=== PATIENT | male | born 1940 | race Two or more races ===

== ENCOUNTER 2022-09-24 23:12 | Emergency (ER) | payer OTHER ==
[~2022-09-24] VITALS: Ht 175.3 cm; Wt 81.6 kg
== END 2022-09-25 07:29 | disposition home or self-care (01) ==
LOC: ER 23:12
DX: S01.81XA Laceration without foreign body of other part of head, initial encounter (principal); W18.39XA Other fall on same level, initial encounter; Y93.89 Activity, other specified; Y92.488 Other paved roadways as the place of occurrence of the external cause; Y99.8 Other external cause status

== ENCOUNTER 2022-10-05 20:50 | Emergency (ER) | payer OTHER ==
[~2022-10-05] VITALS: Ht 177.8 cm; Wt 81.6 kg
== END 2022-10-05 22:43 | disposition home or self-care (01) ==
LOC: ER 20:50
DX: Z48.02 Encounter for removal of sutures (principal)

== ENCOUNTER 2024-08-22 15:55 | Inpatient (IN) | payer OTHER ==
[~2024-08-22] VITALS: Ht 170.2 cm; Wt 78.5 kg
[2024-08-22] MEDS ORDERED: NAMENDA XR1 EACH (16:15)
[2024-08-22] MEDS ORDERED: RISPERIDONE O0.25 MG (16:15)
[2024-08-22] MEDS ORDERED: DEPAKOTE ER250 MG (16:15)
--- NOTE | 2024-08-22 16:35 | NUR ---
PTE ACOMPANADO DE ESPOSA QUIEN REFIERE ABER TENIDO PALPITACIONES MAS UN REFERIDO POR SOSPECHA DE FIBRILACION ATRIAL, SE HEBERT SV MAS SE DEMUESTRA EKG A DR. TATIANA HERNÁNDEZ, PTE SE UBICA EN K8 CON BARRANDAS ELEVADAS.
[2024-08-22 17:51] LABS: BASO % 0.5 % (0.1-1.2); EOS # 0.39 (0.04-0.54); EOS % 8.8 % (0.7-7.0); HEMOGLOBIN 13.8 g/dL (13.7-17.5); LYMPH # 1.28 (1.18-3.74); LYMPH % 28.8 % (19.3-53.1); MEAN CORPUSCULAR HEMOGLOBIN 32.2 pg (25.6-32.2); MONO # 0.47 (0.24-0.82); MONO % 10.6 % (4.7-12.5); NEUT # 2.27 (1.56-6.13); NEUT % 51.1 % (34.0-71.1); RED BLOOD COUNT 4.28 M/uL (4.63-6.08); RED CELL DISTRIBUTION WIDTH 12.9 % (11.6-14.4)
[2024-08-22 18:00] LABS: PLATELET COUNT 98 K/uL (163-369)
[2024-08-22 18:25] LABS: ALBUMIN 2.8 gm/dL (3.4-5.0); BILIRUBIN TOTAL 0.46 mg/dL (0.3-1.2); CALCIUM 8.6 mg/dL (8.5-10.1); CREATININE SERUM 1.24 mg/dL (0.70-1.30); GFR 55.67; GLOBULINA 3.5 G/DL (2.4-3.5); POTASSIUM 4.33 mEq/L (3.5-5.1); TOTAL PROTEIN 6.3 gm/dL (6.4-8.2)
[2024-08-22] MEDS ORDERED: ACETAMINOPHEN 500 MG GEL..CAP PO PRN (19:30)
[2024-08-22] MEDS ORDERED: AMIODARONE HCL 900 MG in DEXTROSE 5 % IN WATER 500 ML IV SCH (19:45)
[2024-08-22] MEDS ORDERED: ENOXAPARIN SODIUM 80 MG/0.8 ML SYRINGE SUBCUTANEO SCH (21:00)
[2024-08-22] MEDS ORDERED: FUROsemide 20 MG/2 ML VIAL IV SCH (21:00)
[2024-08-22] MEDS ORDERED: ENOXAPARIN SODIUM 80 MG/0.8 ML SYRINGE SUBCUTANEO ONE (21:28)
[2024-08-22 23:00] VITALS: BP 136/85; O2SAT 87
[2024-08-23] VITALS (13 sets, daily range): BP systolic 108–158; BP diastolic 70–103; O2SAT 96–100
[2024-08-23 00:38] LABS: URINE APPEARANCE Cloudy; URINE BILIRRUBIN Negative (NEGATIVE); URINE BLOOD Negative; URINE COLOR Yellow; URINE GLUCOSE Negative (NEGATIVE); URINE KETONE Negative (NEGATIVE); URINE LEUKOCYTE Large; URINE NITRATE Positive; URINE PROTEIN Negative (NEGATIVE)
[2024-08-23 00:43] LABS: URINE EPITHELIAL CELLS 3.3 uL (0.0-38.8); URINE WBC 1024.8 uL (0.0-23.2)
[2024-08-23 00:59] LABS: URINE BACTERIA > 9821.5 uL (0.0-1933); URINE CAST 1.17 uL (0.0-1.40)
[2024-08-23 07:12] LABS: INR 1.25; PARTIAL THROMBOPLASTIN TIME 33.8 SECONDS (22.0-34.0); PROTHROMBIN TIME 13.4 SECONDS (9.0-11.5)
[2024-08-23] MEDS ORDERED: RISPERIDONE 0.25 MG TABLET PO SCH (09:00)
[2024-08-23] MEDS ORDERED: FUROsemide 20 MG/2 ML VIAL IV SCH (09:00)
[2024-08-23] MEDS ORDERED: MEMANTINE HCL 10 MG TABLET PO SCH (09:00)
[2024-08-23] MEDS ORDERED: PANTOPRAZOLE SODIUM 40 MG/VIAL VIAL IV SCH (09:00)
[2024-08-23] MEDS ORDERED: CEFTRIAXONE SODIUM 2,000 MG VIAL IV STA (11:08)
[2024-08-23] MEDS ORDERED: DEXTROSE 5 %-0.45 % SOD CHLORD 1,000 ML IV SCH (13:00)
[2024-08-23 14:40] LABS: FREE TRIODOTIRONINE 1.88 pg/ml (2.18-3.98); T4 FREE 0.81 NG/ML (0.76-1.46)
[2024-08-23 14:41] LABS: C-REACTIVE PROTEIN < 0.29 MG/DL (0.00-0.29)
[2024-08-23] MEDS ORDERED: APIXABAN 5 MG TABLET PO SCH (17:00)
[2024-08-23] MEDS ORDERED: HALOPERIDOL LACTATE 5 MG/ML AMPUL ONE (22:39)
[2024-08-23] MEDS ORDERED: HALOPERIDOL LACTATE 2 MG/ML ML PO STA (22:43)
[2024-08-23] MEDS ORDERED: DIPHENHYDRAMINE HCL 50 MG/ML VIAL 1ML IV PRN (22:45)
[2024-08-23] MEDS ORDERED: HALOPERIDOL LACTATE 2 MG/ML ML PO PRN (22:45)
[2024-08-24] VITALS (8 sets, daily range): BP systolic 149–165; BP diastolic 80–84; O2SAT 95–99
[2024-08-24] MEDS ORDERED: CEFTRIAXONE SODIUM 2,000 MG VIAL IV SCH (09:00)
[2024-08-24] MEDS ORDERED: HALOPERIDOL LACTATE 5 MG/ML AMPUL IV PRN (09:00)
[2024-08-24] MEDS ORDERED: DEXTROSE 5 %-0.45 % SOD CHLORD 1,000 ML IV SCH (14:45)
[2024-08-24] MEDS ORDERED: LOSARTAN POTASSIUM 25 MG TABLET PO SCH (17:00)
[2024-08-25] VITALS (8 sets, daily range): BP systolic 112–147; BP diastolic 82–92; O2SAT 94–98
[2024-08-25 06:19] LABS: BASO % 0.3 % (0.1-1.2); EOS # 0.55 (0.04-0.54); EOS % 8.1 % (0.7-7.0); HEMATOCRIT 47.8 % (40.1-51.0); HEMOGLOBIN 16.6 g/dL (13.7-17.5); LYMPH # 1.16 (1.18-3.74); LYMPH % 17.1 % (19.3-53.1); MEAN CORPUSCULAR HEMOGLOBIN 32.3 pg (25.6-32.2); MONO % 8.8 % (4.7-12.5); NEUT # 4.44 (1.56-6.13); NEUT % 65.6 % (34.0-71.1); RED BLOOD COUNT 5.14 M/uL (4.63-6.08); RED CELL DISTRIBUTION WIDTH 12.3 % (11.6-14.4)
[2024-08-25 06:49] LABS: PLATELET COUNT 109 K/uL (163-369)
[2024-08-25 06:58] LABS: ALBUMIN 3.3 gm/dL (3.4-5.0); BILIRUBIN TOTAL 0.91 mg/dL (0.3-1.2); CALCIUM 8.8 mg/dL (8.5-10.1); CREATININE SERUM 1.04 mg/dL (0.70-1.30); GFR 68.2; GLOBULINA 3.5 G/DL (2.4-3.5); POTASSIUM 3.72 mEq/L (3.5-5.1); TOTAL PROTEIN 6.8 gm/dL (6.4-8.2)
[2024-08-25 07:07] LABS: INR 1.17; PARTIAL THROMBOPLASTIN TIME 29.9 SECONDS (22.0-34.0); PROTHROMBIN TIME 12.6 SECONDS (9.0-11.5)
[2024-08-25] MEDS ORDERED: AMIODARONE HCL 200 MG TABLET PO SCH (09:00)
[2024-08-26] MEDS ORDERED: PANTOPRAZOLE SODIUM 40 MG TABLET.DR PO SCH (09:00)
== END 2024-08-25 19:07 | disposition home or self-care (01) | DRG 309 ==
LOC: ER 15:55 → ICU-2 20:28 → SEC-K 08-23 13:19 → MEDJ 08-23 16:37
PROVIDERS: General Practice; ADMIT Specialist; ATTEND Specialist
PROC: B24BZZZ Ultrasonography of Heart with Aorta (ICD-10-PCS; 2024-08-22)
PROC: 4A12X4Z Monitoring of Cardiac Electrical Activity, External Approach (ICD-10-PCS; principal; 2024-08-23)
PROC: BW40ZZZ Ultrasonography of Abdomen (ICD-10-PCS; 2024-08-23)
PROC: 8E0ZXY6 Isolation (ICD-10-PCS; 2024-08-23)
DX: I48.0 Paroxysmal atrial fibrillation (principal); N17.9 Acute kidney failure, unspecified; N39.0 Urinary tract infection, site not specified; I11.0 Hypertensive heart disease with heart failure; I50.9 Heart failure, unspecified; D69.6 Thrombocytopenia, unspecified; G30.9 Alzheimer's disease, unspecified; F02.80 Dementia in other diseases classified elsewhere, unspecified severity, without behavioral disturbance, psychotic disturbance, mood disturbance, and anxiety; B96.20 Unspecified Escherichia coli [E. coli] as the cause of diseases classified elsewhere; E06.3 Autoimmune thyroiditis

== ENCOUNTER 2024-09-11 05:23 | Emergency (ER) | payer OTHER ==
[~2024-09-11] VITALS: Ht 175.3 cm; Wt 78.9 kg
[~2024-09-11 05:23] MED LIST: DEPAKOTE ER250 MG; NAMENDA XR1 EACH; RISPERIDONE O0.25 MG
[2024-09-11] MEDS ORDERED: COZAAR25 MG (05:38)
[2024-09-11] MEDS ORDERED: AMIODARONE HCL400 MG (05:39)
[2024-09-11] MEDS ORDERED: PEPCID AC20 MG (05:40)
[2024-09-11] MEDS ORDERED: ELIQUIS5 MG (05:40)
[2024-09-11] MEDS ORDERED: TRAZODONE HCL150 MG (05:40)
== END 2024-09-11 06:48 | disposition home or self-care (01) ==
LOC: ER 06:05
DX: S09.8XXA Other specified injuries of head, initial encounter (principal); W19.XXXA Unspecified fall, initial encounter; Y93.89 Activity, other specified; Y92.89 Other specified places as the place of occurrence of the external cause; Y99.8 Other external cause status; I10 Essential (primary) hypertension

== ENCOUNTER 2025-02-06 01:18 | Emergency (ER) | payer OTHER ==
[~2025-02-06] VITALS: Ht 175.3 cm; Wt 72.6 kg
[~2025-02-06 01:18] MED LIST changes: +AMIODARONE HCL400 MG; +COZAAR25 MG; +ELIQUIS5 MG; +PEPCID AC20 MG; +TRAZODONE HCL150 MG
[2025-02-06] MEDS ORDERED: DEXAMETHASONE SODIUM PHOSPHATE 4 MG/ML VIAL IM ONE (01:45)
[2025-02-06] MEDS ORDERED: ORPHENADRINE CITRATE 30 MG/ML AMPUL IM ONE (01:45)
[2025-02-06] MEDS ORDERED: ACETAMINOPHEN 500 MG GEL..CAP PO ONE ×2 (01:45→01:57)
[2025-02-06] MEDS ORDERED: ORPHENADRINE CITRATE 30 MG/ML AMPUL ONE (01:56)
[2025-02-06] MEDS ORDERED: DEXAMETHASONE SODIUM PHOSPHATE 4 MG/ML VIAL ONE (01:57)
[2025-02-06 03:07] LABS: BASO % 0.2 % (0.1-1.2); EOS # 0.30 (0.04-0.54); EOS % 3.4 % (0.7-7.0); LYMPH # 1.92 (1.18-3.74); LYMPH % 21.9 % (19.3-53.1); MEAN PLATELET VOLUME 10.00 fl (9.4-12.4); MONO # 0.84 (0.24-0.82); MONO % 9.6 % (4.7-12.5); NEUT # 5.68 (1.56-6.13); NEUT % 64.7 % (34.0-71.1); RED CELL DISTRIBUTION WIDTH 12.5 % (11.6-14.4)
[2025-02-06 03:21] LABS: INR 1.13
[2025-02-06 03:24] LABS: ALT/SGPT 20.0 U/L (12-78); AST/SGOT 20.0 U/L (15-37); BILIRUBIN TOTAL 0.54 mg/dL (0.3-1.2); BUN CREA RATIO 22.0 (7.0-25.0); CREATININE SERUM 1.53 mg/dL (0.70-1.30); GFR 43.68; GLOBULINA 3.6 G/DL (2.4-3.5); GLUCOSE FASTING 94.0 mg/dL (65-100); OSMOLALITY SERUM 286.0 MOSM/KG (275-295)
[2025-02-06] MEDS ORDERED: NORFLEX100MG PO (04:19)
[2025-02-06] MEDS ORDERED: 8HR ARTHRITIS650 M1 PO (04:19)
== END 2025-02-06 04:38 | disposition home or self-care (01) ==
LOC: ER 01:19
PROVIDERS: General Practice
DX: S09.8XXA Other specified injuries of head, initial encounter (principal); W19.XXXA Unspecified fall, initial encounter; Y93.89 Activity, other specified; Y92.89 Other specified places as the place of occurrence of the external cause; Y99.8 Other external cause status; I10 Essential (primary) hypertension

== ENCOUNTER 2025-03-15 14:56 | Emergency (ER) | payer OTHER ==
[~2025-03-15] VITALS: Ht 170.2 cm; Wt 73.5 kg
[~2025-03-15 14:56] MED LIST changes: +8HR ARTHRITIS650 M1 PO; +NORFLEX100MG PO
[2025-03-15 16:41] LABS: BASO % 0.2 % (0.1-1.2); EOS # 0.07 (0.04-0.54); EOS % 0.7 % (0.7-7.0); LYMPH # 1.29 (1.18-3.74); LYMPH % 12.3 % (19.3-53.1); MEAN PLATELET VOLUME 10.20 fl (9.4-12.4); MONO # 0.83 (0.24-0.82); MONO % 7.9 % (4.7-12.5); NEUT # 8.21 (1.56-6.13); NEUT % 78.6 % (34.0-71.1); RED CELL DISTRIBUTION WIDTH 12.5 % (11.6-14.4)
[2025-03-15 17:11] LABS: ALT/SGPT 20.0 U/L (12-78); AST/SGOT 15.0 U/L (15-37); BILIRUBIN TOTAL 0.53 mg/dL (0.3-1.2); BUN CREA RATIO 22.0 (7.0-25.0); CREATININE SERUM 1.22 mg/dL (0.70-1.30); GFR 56.59; GLOBULINA 4.2 G/DL (2.4-3.5); GLUCOSE FASTING 123.0 mg/dL (65-100); OSMOLALITY SERUM 288.0 MOSM/KG (275-295)
[2025-03-15 17:43] LABS: COVID-19 AG NEGATIVE (NEGATIVE)
== END 2025-03-15 19:00 | disposition home or self-care (01) ==
LOC: ER 14:56
PROVIDERS: Preventive Medicine Public Health & General Preventive Medicine
DX: J06.9 Acute upper respiratory infection, unspecified (principal); R50.9 Fever, unspecified; R05.8 Other specified cough; I10 Essential (primary) hypertension; Z20.822 Contact with and (suspected) exposure to COVID-19